=== PATIENT | male | born 1975 | race Two or more races ===

== ENCOUNTER 2018-01-13 00:31 | Emergency (ER) | payer OTHER ==
[~2018-01-13] VITALS: Ht 165.1 cm; Wt 78.9 kg
[2018-01-13 01:05] LABS: Basophils # (auto) 0.1 uL; Basophils % (auto) 0.9 % (0.0-2.0); Eosinophils # (auto) 0.2 uL; Eosinophils % (auto) 2.9 % (0.0-7.0); Hematocrit 49.2 % (41.0-53.0); Hemoglobin 16.8 g/dL (13.5-17.5); Lymphocytes # (auto) 3.7 uL; Lymphocytes % (auto) 43.7 % (10.0-50.0); Mean Corpuscular Hemoglobin 32.5 pg (28.0-32.0); Mean Corpuscular Hgb Conc. 34.1 g/dL (32.0-36.0); Mean Corpuscular Volume 95.3 fL (80.0-100.0); Monocytes # (auto) 0.6 uL; Monocytes % (auto) 6.9 % (0.0-12.0); Neutrophils # (auto) 3.8 uL; Neutrophils % (auto) 45.6 % (37.0-80.0); Nucleated Red Blood Cells % 0.1 %; Platelet Count (auto) 167 10^3/uL (140-450); Red Blood Cells 5.16 10^6/uL (4.5-5.90); Red Cell Distribution Width 13.2 % (11.8-14.3); White Blood Cell 8.4 10^3/uL (4.4-10.8)
[2018-01-13 01:32] LABS: Albumin 3.7 g/dL (3.4-5.0); Amylase 63 U/L (25-115); Anion Gap 10 (5-15); BUN/Creatinine Ratio 16.7; Blood Urea Nitrogen 16 mg/dL (7-18); Calcium 8.8 mg/dL (8.5-10.1); Carbon Dioxide 22 mmol/L (21-32); Chloride 107 mmol/L (98-107); GFR African American 110 mL/min; GFR Non-African American 91 mL/min; Glucose 94 mg/dL (74-106); Lipase 156 U/L (73-393); Potassium 3.8 mmol/L (3.5-5.1); Sodium 139 mmol/L (136-145)
[2018-01-13 01:34] LABS: Alanine Aminotransferase 57 U/L (16-61); Alkaline Phosphatase 79 U/L (45-117); Aspartate Aminotransferase 27 U/L (15-37); Bilirubin, Total 0.5 mg/dL (0.2-1.0); Total Protein 7.6 g/dL (6.4-8.2)
[2018-01-13 02:52] VITALS: BP 131/89
== END 2018-01-13 04:05 | disposition home or self-care (01) ==
LOC: ER 00:36
DX: K29.00 Acute gastritis without bleeding (principal); K59.00 Constipation, unspecified
CPT/HCPCS: 36415; 74176; 80053; 82150; 83690; 84484; 85025